=== PATIENT | female | born 2000 | race Caucasian/White ===

== ENCOUNTER 2024-03-20 16:47 | Emergency (ER) | payer MEDICAID ==
[~2024-03-20] VITALS: Ht 160 cm; Wt 120.2 kg
[2024-03-20 17:01] VITALS: TEMP 98.4; O2SAT 99
[2024-03-20] MEDS ORDERED: MED4 MT (18:42)
[2024-03-20] MEDS ORDERED: OMEP20CA14 MT (18:42)
[2024-03-20] MEDS ORDERED: DICL100G32 TP (18:45)
[2024-03-20 18:50] VITALS: BP 123/75; PULSE 85; RESP 16
== END 2024-03-20 18:50 | disposition home or self-care (01) ==
LOC: ER 16:47
DX: M54.9 Dorsalgia, unspecified (principal)
CPT/HCPCS: 81025; 99282; 99283

== ENCOUNTER 2025-05-07 16:21 | Emergency (ER) | payer MEDICAID, OTHER ==
[~2025-05-07] VITALS: Ht 160 cm; Wt 127.0 kg
[~2025-05-07 16:21] MED LIST: DICL100G32 TP; METH4TAB95 MT; OMEP20CA14 MT
[2025-05-07 16:35] VITALS: O2SAT 99
[2025-05-07 21:27] VITALS: BP 125/72; PULSE 114; RESP 16; TEMP 36.7; O2SAT 99
== END 2025-05-07 21:27 ==
LOC: ER 16:21
DX: T74.21XA Adult sexual abuse, confirmed, initial encounter (principal); Z04.41 Encounter for examination and observation following alleged adult rape
CPT/HCPCS: 99282; 99283